=== PATIENT | female | born 1995 | race Caucasian/White ===

== ENCOUNTER 2016-07-28 22:41 | Emergency (ER) | payer SELFPAY ==
[2016-07-28 23:50] VITALS: BP 110/58
== END 2016-07-28 23:30 | disposition left against medical advice (07) ==
LOC: ED 22:41
DX: Z53.21 Procedure and treatment not carried out due to patient leaving prior to being seen by health care provider (principal); F10.129 Alcohol abuse with intoxication, unspecified; R11.10 Vomiting, unspecified; R47.81 Slurred speech
CPT/HCPCS: G0480; Q0162